=== PATIENT | male | born 1935 | race Caucasian/White ===

== ENCOUNTER 2017-06-25 04:41 | Outpatient (CLI) | payer MEDICARE, BC | END 2017-06-25 23:59 | disposition home or self-care (01) | LOC: DIABETIC 04:41 | PROVIDERS: ATTEND Family Medicine | DX: E11.9 Type 2 diabetes mellitus without complications (principal) | CPT/HCPCS: G0108 ==

== ENCOUNTER 2017-10-01 02:49 | Outpatient (CLI) | payer MEDICARE, BC | END 2017-10-01 23:59 | disposition home or self-care (01) | LOC: DIABETIC 02:49 | PROVIDERS: ATTEND Family Medicine | DX: E11.9 Type 2 diabetes mellitus without complications (principal) | CPT/HCPCS: G0108 ==

== ENCOUNTER 2017-10-30 05:51 | Day surgery (SDC) | payer MEDICARE, BC ==
[2017-10-29 09:21] LABS: BASOPHILS % (AUTO) 0.3 % (0-1); EOSINOPHILS # (AUTO) 0.6 X10'3 (0-0.9); EOSINOPHILS % (AUTO) 7.4 % (0-6); HEMATOCRIT 37.9 % (42.0-52.0); HEMOGLOBIN 12.8 g/dl (14.0-17.9); LYMPHOCYTES # (AUTO) 2.1 X10'3 (1.1-4.8); LYMPHOCYTES % (AUTO) 24.6 % (21-51); MEAN CORPUSCULAR HEMOGLOBIN 30.9 PG (27.0-31.0); MEAN CORPUSCULAR HGB CONC 33.8 % (33.0-36.5); MEAN CORPUSCULAR VOLUME 91.4 FL (78-98); MEAN PLATELET VOLUME 7.7 FL (7.4-10.4); MONOCYTES # (AUTO) 0.9 X10'3 (0-0.9); MONOCYTES % (AUTO) 9.9 % (2-12); NEUTROPHILS % (AUTO) 57.8 % (42-75); PLATELET COUNT 193 X10'3 (140-440); RED BLOOD COUNT 4.14 X10'6 (4.70-6.10); RED CELL DISTRIBUTION WIDTH 13.6 % (11.5-14.5); WHITE BLOOD COUNT 8.6 X10'3 (4.5-11.0)
[2017-10-29 09:30] LABS: ALBUMIN 3.7 G/DL (3.4-5.0); ANION GAP 7 (8-16); BLOOD UREA NITROGEN 21 MG/DL (7-18); BUN/CREATININE RATIO 19.1 (5.4-32.0); CALCIUM 9.5 MG/DL (8.5-10.1); CHLORIDE 106 MMOL/L (99-107); GLUCOSE 257 MG/DL (70-104); PARTIAL THROMBOPLASTIN TIME 25 SECONDS (22-32); POTASSIUM 4.2 MMOL/L (3.5-5.1); PROTHROMBIN TIME 10.7 SECONDS (9.0-12.0); SODIUM 142 MMOL/L (135-145); eGFR 64 ML/MIN
[~2017-10-30] VITALS: Ht 185.4 cm; Wt 81.4 kg
[2017-10-30] VITALS (18 sets, daily range): BP systolic 126–187; BP diastolic 54–98
[2017-10-30] MEDS ORDERED: acetylcysteine 200 MG/ml 4ml vial PO PRN (06:15)
[2017-10-30] MEDS ORDERED: diphenhydrAMINE 25mg capsule PO PRN (06:15)
[2017-10-30] MEDS ORDERED: LORazepam 0.5 MG tablet PO PRN (06:30)
[2017-10-30] MEDS ORDERED: RAMI10CA PO (07:17)
[2017-10-30] MEDS ORDERED: ASCO10007 PO (07:17)
[2017-10-30] MEDS ORDERED: FOLI0.4T2 PO (07:17)
[2017-10-30] MEDS ORDERED: NIAC250T2 PO (07:17)
[2017-10-30] MEDS ORDERED: OMEG1CAP13 PO (07:17)
[2017-10-30] MEDS ORDERED: NIT10P TD (07:17)
[2017-10-30] MEDS ORDERED: LANTUS SQ (07:17)
[2017-10-30] MEDS ORDERED: METF-436 PO (07:17)
[2017-10-30] MEDS ORDERED: CYA500T PO (07:17)
[2017-10-30] MEDS ORDERED: MULT-1172 PO (07:17)
[2017-10-30] MEDS ORDERED: SIMV20TA5 PO (07:17)
[2017-10-30] MEDS ORDERED: INSU100C4 SQ (07:17)
[2017-10-30] MEDS ORDERED: midazolam 2 mg/2 ml injection ONE (07:39)
[2017-10-30] MEDS ORDERED: heparin 1,000unit/ml 10ml vial 10 ML ONE (07:39)
[2017-10-30] MEDS ORDERED: nitroGLYCERIN-Tridil 50MG/D5W 250 ML IV ONE (07:39)
[2017-10-30] MEDS ORDERED: iohexol 350 MG/ML 50ML vial IV ONE (07:39)
[2017-10-30] MEDS ORDERED: LIDOcaine 1% 30ml preserv. free vial ONE (07:39)
[2017-10-30] MEDS ORDERED: fentaNYL/PF 50MCG/1 ML 2ML syringe ONE (07:39)
[2017-10-30] MEDS ORDERED: iohexol 350MG/ML 100ml bottle IV ONE ×3 (07:39→09:17)
[2017-10-30] MEDS: normal saline 1000ml 1,000 ML IV SCH ×3 (07:40→16:11)
[2017-10-30] MEDS ORDERED: ticagrelor 90mg tablet ONE (09:29)
[2017-10-30] MEDS ORDERED: cyclobenzaprine 10mg tablet PO PRN (10:30)
[2017-10-30] MEDS ORDERED: HYDROcodone/acetaminophen 10/325mg tab PO PRN ×2 (10:30)
[2017-10-30] MEDS ORDERED: OXAZEpam 15mg capsule PO PRN (10:30)
[2017-10-30] MEDS ORDERED: dextrose 50%-water 50ml dispensing syringe IV PRN ×2 (11:00)
[2017-10-30] MEDS ORDERED: glucagon, human recombinant 1mg kit SUBCUT PRN (11:00)
[2017-10-30] MEDS ORDERED: insulin Lispro (HumaLOG) vial - multi-dose SQ SCH (11:00)
[2017-10-30] MEDS ORDERED: dextrose ORAL solution 15 GM/59 ML bottle PO PRN ×2 (11:00)
[2017-10-30] MEDS ORDERED: MESSAGE TO PHARMACY PO ONE (11:00)
[2017-10-30] MEDS ORDERED: morphine 2 MG/ML inj. syringe IV PRN (11:15)
[2017-10-30] MEDS ORDERED: atropine 0.1mg/ml 10ml syringe IV PRN (11:55)
[2017-10-30] MEDS ORDERED: non-formulary drug (Insulin Aspart (Novolog) 100 UNIT) SQ SCH (13:00)
[2017-10-30 16:26] LABS: HEMOGLOBIN A1C 7.5 % (4.5-6.2)
[2017-10-30] MEDS ORDERED: atorvastatin 10mg tablet PO SCH (21:00)
[2017-10-30] MEDS ORDERED: insulin glargine (Lantus) pen - multi-dose SQ SCH ×2 (21:00)
[2017-10-30] MEDS: ticagrelor 90mg tablet PO SCH (21:21)
[2017-10-31 03:00] VITALS: BP 142/79
[2017-10-31 05:28] LABS: BASOPHILS % (AUTO) 0.3 % (0-1); EOSINOPHILS # (AUTO) 0.6 X10'3 (0-0.9); EOSINOPHILS % (AUTO) 5.1 % (0-6); HEMATOCRIT 35.7 % (42.0-52.0); HEMOGLOBIN 11.9 g/dl (14.0-17.9); LYMPHOCYTES # (AUTO) 2.4 X10'3 (1.1-4.8); LYMPHOCYTES % (AUTO) 21.5 % (21-51); MEAN CORPUSCULAR HEMOGLOBIN 31.1 PG (27.0-31.0); MEAN CORPUSCULAR HGB CONC 33.5 % (33.0-36.5); MEAN CORPUSCULAR VOLUME 92.8 FL (78-98); MEAN PLATELET VOLUME 8.4 FL (7.4-10.4); MONOCYTES # (AUTO) 1.1 X10'3 (0-0.9); MONOCYTES % (AUTO) 9.7 % (2-12); NEUTROPHILS # (AUTO) 7.2 X10'3 (1.8-7.7); NEUTROPHILS % (AUTO) 63.4 % (42-75); PLATELET COUNT 169 X10'3 (140-440); RED BLOOD COUNT 3.84 X10'6 (4.70-6.10); RED CELL DISTRIBUTION WIDTH 13.6 % (11.5-14.5); WHITE BLOOD COUNT 11.3 X10'3 (4.5-11.0)
[2017-10-31 06:06] LABS: ALBUMIN 3.3 G/DL (3.4-5.0); ANION GAP 7 (8-16); BLOOD UREA NITROGEN 20 MG/DL (7-18); BUN/CREATININE RATIO 16.8 (5.4-32.0); CALCIUM 8.6 MG/DL (8.5-10.1); CHLORIDE 106 MMOL/L (99-107); CHOL/HDL RATIO 2.9 (0.00-4.99); CHOLESTEROL 84 MG/DL (0-200); CREATININE 1.19 MG/DL (0.60-1.10); GLUCOSE 180 MG/DL (70-104); HDL CHOLESTEROL 29 MG/DL (35-60); LDL CHOLESTEROL 45 MG/DL (50-100); POTASSIUM 4.1 MMOL/L (3.5-5.1); SODIUM 142 MMOL/L (135-145); TOTAL CARBON DIOXIDE 28.8 MMOL/L (24-32); TRIGLYCERIDES 86 MG/DL (20-135); eGFR 59 ML/MIN
[2017-10-31 06:49] VITALS: BP 149/85
[2017-10-31] MEDS ORDERED: ASPI81TA52 PO (07:42)
[2017-10-31] MEDS ORDERED: METF-436 PO (07:42)
[2017-10-31] MEDS ORDERED: TICA90TA PO (07:42)
[2017-10-31] MEDS ORDERED: lisinopril 20mg tablet PO SCH (08:00)
[2017-10-31] MEDS ORDERED: folic acid 0.4mg tablet PO SCH (08:00)
[2017-10-31] MEDS ORDERED: nitroGLYCERIN 0.4mg/hour patch TD SCH (08:00)
[2017-10-31] MEDS ORDERED: beta-carotene(A) w/C & E + minerals tab PO SCH (08:00)
[2017-10-31] MEDS ORDERED: non-formulary drug (Docosahexanoic Acid/Epa (Fish Oil 1,000 Mg Softgel) 1 EACH) PO SCH (08:00)
[2017-10-31] MEDS ORDERED: ascorbic acid 500mg tablet PO SCH (08:00)
[2017-10-31] MEDS ORDERED: cyanocobalamin 500mcg tablet PO SCH (08:00)
[2017-10-31] MEDS: ticagrelor 90mg tablet PO SCH (08:29)
[2017-10-31] MEDS ORDERED: aspirin 81mg tab.chew PO SCH (08:30)
[2017-11-01] MEDS ORDERED: metFORMIN 500mg tablet PO SCH (08:00)
== END 2017-10-31 10:30 | disposition home or self-care (01) ==
LOC: SSTAY O 05:51 → PCU 3S 15:27 → SSTAY O 10-31 10:30
PROVIDERS: ATTEND Internal Medicine Cardiovascular Disease
DX: I25.118 Atherosclerotic heart disease of native coronary artery with other forms of angina pectoris (principal); E11.9 Type 2 diabetes mellitus without complications; I44.7 Left bundle-branch block, unspecified; I10 Essential (primary) hypertension; E78.5 Hyperlipidemia, unspecified; Z79.01 Long term (current) use of anticoagulants; Z86.79 Personal history of other diseases of the circulatory system; Z79.84 Long term (current) use of oral hypoglycemic drugs; Z79.4 Long term (current) use of insulin; Z95.5 Presence of coronary angioplasty implant and graft; Z79.899 Other long term (current) drug therapy
CPT/HCPCS: 36415; 80048; 80061; 82948; 83036; 85025; 85347; 85610; 85730; 93005; 93458; 99152; 99153; A6257; A6449; C1725; C1769; C1874; C9600; J1644; J1815; J2250; J2270; J3010; J3490; J7030; Q0163; Q9967; A4620; C9607

== ENCOUNTER 2017-12-02 20:45 | Inpatient (IN) | payer MEDICARE, BC ==
[~2017-12-02] VITALS: Ht 182.9 cm; Wt 74.4 kg
[~2017-12-02 20:45] MED LIST: ASCO10007 PO; ASPI81TA52 PO; CYA500T PO; FOLI0.4T2 PO; INSU100C4 SQ; LANTUS SQ; METF-436 PO; MULT-1172 PO; NIAC250T2 PO; OMEG1CAP13 PO; RAMI10CA PO; SIMV20TA5 PO; TICA90TA PO
[2017-12-02] MEDS ORDERED: aspirin 81mg tab.chew PO ONE (21:16)
[2017-12-02 21:22] LABS: BASOPHILS % (AUTO) 0.2 % (0-1); EOSINOPHILS # (AUTO) 0.5 X10'3 (0-0.9); EOSINOPHILS % (AUTO) 4.6 % (0-6); HEMATOCRIT 38.1 % (42.0-52.0); HEMOGLOBIN 12.8 g/dl (14.0-17.9); LYMPHOCYTES # (AUTO) 1.8 X10'3 (1.1-4.8); LYMPHOCYTES % (AUTO) 18.2 % (21-51); MEAN CORPUSCULAR HEMOGLOBIN 31.1 PG (27.0-31.0); MEAN CORPUSCULAR HGB CONC 33.7 % (33.0-36.5); MEAN CORPUSCULAR VOLUME 92.1 FL (78-98); MONOCYTES # (AUTO) 0.6 X10'3 (0-0.9); MONOCYTES % (AUTO) 6.4 % (2-12); NEUTROPHILS # (AUTO) 6.9 X10'3 (1.8-7.7); NEUTROPHILS % (AUTO) 70.6 % (42-75); PLATELET COUNT 177 X10'3 (140-440); RED BLOOD COUNT 4.14 X10'6 (4.70-6.10); WHITE BLOOD COUNT 9.8 X10'3 (4.5-11.0)
[2017-12-02 21:37] LABS: ALANINE AMINOTRANSFERASE 26 U/L (12-78); ALBUMIN 3.5 G/DL (3.4-5.0); ALBUMIN/GLOBULIN RATIO 0.9 (1.1-1.5); ALKALINE PHOSPHATASE 66 IU/L (46-116); ANION GAP 12 (8-16); ASPARTATE AMINO TRANSFERASE 22 U/L (10-37); BILIRUBIN,TOTAL 0.3 MG/DL (0.1-1.0); BLOOD UREA NITROGEN 23 MG/DL (7-18); BUN/CREATININE RATIO 15.5 (5.4-32.0); CALCIUM 9.4 MG/DL (8.5-10.1); CHLORIDE 105 MMOL/L (99-107); CREATININE 1.48 MG/DL (0.60-1.10); GLUCOSE 195 MG/DL (70-104); SODIUM 140 MMOL/L (135-145); TOTAL CARBON DIOXIDE 23.3 MMOL/L (24-32); TOTAL PROTEIN 7.2 G/DL (6.4-8.2); eGFR 46 ML/MIN
[2017-12-02] MEDS ORDERED: OMEP20TA23 PO (21:41)
[2017-12-02 21:47] LABS: D-DIMER 1.52 MG/L FEU (0-0.50); PARTIAL THROMBOPLASTIN TIME 24 SECONDS (22-32); PROTHROMBIN TIME 10.7 SECONDS (9.0-12.0)
[2017-12-02] MEDS ORDERED: heparin 10,000 units/1 ML INJ IV ONE ×2 (21:55→22:05)
[2017-12-02] MEDS ORDERED: heparin 10,000 units/1 ML INJ IV PRN (21:55)
[2017-12-03] MEDS ORDERED: ticagrelor 90mg tablet PO STA (00:33)
[2017-12-03] MEDS ORDERED: acetaminophen 325mg tablet PO PRN ×2 (00:35)
[2017-12-03] MEDS ORDERED: insulin glargine (Lantus) pen - multi-dose SQ ONE ×2 (00:35→01:13)
[2017-12-03] MEDS ORDERED: magnesium hydroxide 30ml (MOM) UD suspension PO PRN (00:35)
[2017-12-03] MEDS ORDERED: mag hydrox/Alum hydrox/simeth 30ml oral suspension PO PRN (00:35)
[2017-12-03] MEDS ORDERED: ondansetron/PF 4mg/2ml inj IV PRN (00:35)
[2017-12-03] MEDS ORDERED: glucagon, human recombinant 1mg kit SUBCUT PRN (00:40)
[2017-12-03] MEDS ORDERED: dextrose ORAL solution 15 GM/59 ML bottle PO PRN ×2 (00:40)
[2017-12-03] MEDS ORDERED: dextrose 50%-water 50ml dispensing syringe IV PRN ×2 (00:40)
[2017-12-03] MEDS ORDERED: MESSAGE TO PHARMACY PO ONE (00:40)
[2017-12-03 04:00] VITALS: BP 144/87
[2017-12-03 05:30] VITALS: BP 140/90
[2017-12-03 06:15] LABS: BASOPHILS % (AUTO) 0.3 % (0-1); EOSINOPHILS # (AUTO) 0.8 X10'3 (0-0.9); EOSINOPHILS % (AUTO) 7.7 % (0-6); HEMATOCRIT 35.4 % (42.0-52.0); HEMOGLOBIN 12.2 g/dl (14.0-17.9); LYMPHOCYTES # (AUTO) 2.3 X10'3 (1.1-4.8); LYMPHOCYTES % (AUTO) 21.5 % (21-51); MEAN CORPUSCULAR HEMOGLOBIN 31.2 PG (27.0-31.0); MEAN CORPUSCULAR HGB CONC 34.3 % (33.0-36.5); MEAN CORPUSCULAR VOLUME 90.9 FL (78-98); MEAN PLATELET VOLUME 8.4 FL (7.4-10.4); MONOCYTES # (AUTO) 0.9 X10'3 (0-0.9); MONOCYTES % (AUTO) 8.8 % (2-12); NEUTROPHILS # (AUTO) 6.6 X10'3 (1.8-7.7); NEUTROPHILS % (AUTO) 61.7 % (42-75); PLATELET COUNT 167 X10'3 (140-440); RED CELL DISTRIBUTION WIDTH 13.5 % (11.5-14.5); WHITE BLOOD COUNT 10.6 X10'3 (4.5-11.0)
[2017-12-03] MEDS: pantoprazole 40mg Tablet.DR PO SCH (07:36)
[2017-12-03] MEDS: atorvastatin 10mg tablet PO SCH (07:36)
[2017-12-03] MEDS: lisinopril 20mg tablet PO SCH (07:36)
[2017-12-03] MEDS: metoprolol tartrate 12.5mg (1/2 tablet) PO SCH ×2 (07:47→20:00)
[2017-12-03] MEDS: aspirin 81mg tablet.DR PO SCH (08:00)
[2017-12-03] MEDS: ticagrelor 90mg tablet PO SCH ×2 (08:00→20:00)
[2017-12-03 09:29] LABS: ALBUMIN 3.1 G/DL (3.4-5.0); ANION GAP 8 (8-16); BLOOD UREA NITROGEN 23 MG/DL (7-18); BUN/CREATININE RATIO 19.3 (5.4-32.0); CHLORIDE 106 MMOL/L (99-107); CREATININE 1.19 MG/DL (0.60-1.10); GLUCOSE 174 MG/DL (70-104); POTASSIUM 3.9 MMOL/L (3.5-5.1); SODIUM 141 MMOL/L (135-145); TOTAL CARBON DIOXIDE 26.6 MMOL/L (24-32); eGFR 59 ML/MIN
[2017-12-03 11:00] VITALS: BP 126/84
[2017-12-03 15:00] VITALS: BP 141/82
[2017-12-03] MEDS: Potassium Cl inj 20 MEQ in normal saline 1000ml 990 ML IV SCH (17:41)
[2017-12-03] MEDS: nitroGLYCERIN 0.2mg/hour patch TD SCH (17:41)
[2017-12-03 18:00] VITALS: BP 141/74
[2017-12-03] MEDS ORDERED: iohexol 350MG/ML 100ml bottle IV ONE (18:33)
[2017-12-03] MEDS: insulin Lispro (HumaLOG) vial - multi-dose SQ SCH (19:26)
[2017-12-03] MEDS: MESSAGE TO NURSING PO SCH (20:00)
[2017-12-03 22:00] VITALS: BP 129/66
[2017-12-03] MEDS: insulin glargine (Lantus) pen - multi-dose SQ SCH (22:03)
[2017-12-04 02:00] VITALS: BP 125/81
[2017-12-04 02:21] LABS: BASOPHILS % (AUTO) 0.5 % (0-1); EOSINOPHILS % (AUTO) 12.8 % (0-6); HEMATOCRIT 34.4 % (42.0-52.0); HEMOGLOBIN 11.7 g/dl (14.0-17.9); LYMPHOCYTES % (AUTO) 25.3 % (21-51); MEAN CORPUSCULAR HEMOGLOBIN 31.3 PG (27.0-31.0); MEAN CORPUSCULAR HGB CONC 34.1 % (33.0-36.5); MEAN CORPUSCULAR VOLUME 91.7 FL (78-98); MEAN PLATELET VOLUME 8.1 FL (7.4-10.4); MONOCYTES # (AUTO) 0.8 X10'3 (0-0.9); NEUTROPHILS % (AUTO) 51.4 % (42-75); PLATELET COUNT 153 X10'3 (140-440); RED BLOOD COUNT 3.75 X10'6 (4.70-6.10); RED CELL DISTRIBUTION WIDTH 13.6 % (11.5-14.5); WHITE BLOOD COUNT 7.8 X10'3 (4.5-11.0)
[2017-12-04 05:30] VITALS: BP 126/78
[2017-12-04 06:14] LABS: ALBUMIN 3.2 G/DL (3.4-5.0); ANION GAP 7 (8-16); BLOOD UREA NITROGEN 21 MG/DL (7-18); BUN/CREATININE RATIO 17.1 (5.4-32.0); CALCIUM 8.7 MG/DL (8.5-10.1); CHLORIDE 106 MMOL/L (99-107); CHOL/HDL RATIO 2.6 (0.00-4.99); CHOLESTEROL 79 MG/DL (0-200); CREATININE 1.23 MG/DL (0.60-1.10); GLUCOSE 102 MG/DL (70-104); HDL CHOLESTEROL 30 MG/DL (35-60); LDL CHOLESTEROL 42 MG/DL (50-100); POTASSIUM 4.1 MMOL/L (3.5-5.1); SODIUM 141 MMOL/L (135-145); TOTAL CARBON DIOXIDE 27.8 MMOL/L (24-32); TRIGLYCERIDES 32 MG/DL (20-135); eGFR 57 ML/MIN
[2017-12-04 06:16] LABS: TROPONIN I 5.89 NG/ML (0.0-0.05)
[2017-12-04] MEDS: ticagrelor 90mg tablet PO SCH ×2 (06:53→19:34)
[2017-12-04] MEDS: atorvastatin 10mg tablet PO SCH (07:00)
[2017-12-04] MEDS: aspirin 81mg tablet.DR PO SCH (07:00)
[2017-12-04] MEDS: pantoprazole 40mg Tablet.DR PO SCH (07:00)
[2017-12-04] MEDS: nitroGLYCERIN 0.2mg/hour patch TD SCH (07:01)
[2017-12-04] MEDS: metoprolol tartrate 12.5mg (1/2 tablet) PO SCH ×2 (07:03→20:08)
[2017-12-04] MEDS: lisinopril 20mg tablet PO SCH (07:03)
[2017-12-04] MEDS: insulin Lispro (HumaLOG) vial - multi-dose SQ SCH ×2 (08:43→13:08)
[2017-12-04] MEDS: Potassium Cl inj 20 MEQ in normal saline 1000ml 990 ML IV SCH ×2 (08:48→21:56)
[2017-12-04 11:00] VITALS: BP 136/68
[2017-12-04] MEDS: normal saline 1000ml 1,000 ML IV SCH (14:07)
[2017-12-04 15:00] VITALS: BP 103/62
[2017-12-04 18:00] VITALS: BP 131/60
[2017-12-04] MEDS: MESSAGE TO NURSING PO SCH (20:00)
[2017-12-04] MEDS: insulin glargine (Lantus) pen - multi-dose SQ SCH (20:11)
[2017-12-04 22:00] VITALS: BP 147/69
[2017-12-05] VITALS (16 sets, daily range): BP systolic 122–145; BP diastolic 52–82
[2017-12-05 05:56] LABS: BASOPHILS % (AUTO) 0.2 % (0-1); EOSINOPHILS # (AUTO) 1.3 X10'3 (0-0.9); EOSINOPHILS % (AUTO) 14.6 % (0-6); HEMATOCRIT 35.3 % (42.0-52.0); HEMOGLOBIN 12.1 g/dl (14.0-17.9); LYMPHOCYTES # (AUTO) 2.1 X10'3 (1.1-4.8); LYMPHOCYTES % (AUTO) 23.4 % (21-51); MEAN CORPUSCULAR HEMOGLOBIN 31.1 PG (27.0-31.0); MEAN CORPUSCULAR HGB CONC 34.3 % (33.0-36.5); MEAN CORPUSCULAR VOLUME 90.5 FL (78-98); MEAN PLATELET VOLUME 8.3 FL (7.4-10.4); MONOCYTES # (AUTO) 0.9 X10'3 (0-0.9); MONOCYTES % (AUTO) 9.8 % (2-12); NEUTROPHILS # (AUTO) 4.6 X10'3 (1.8-7.7); PLATELET COUNT 151 X10'3 (140-440); WHITE BLOOD COUNT 8.8 X10'3 (4.5-11.0)
[2017-12-05 06:30] LABS: ALBUMIN 3.2 G/DL (3.4-5.0); ANION GAP 8 (8-16); BLOOD UREA NITROGEN 20 MG/DL (7-18); BUN/CREATININE RATIO 16.8 (5.4-32.0); CALCIUM 8.9 MG/DL (8.5-10.1); CHLORIDE 107 MMOL/L (99-107); CREATININE 1.19 MG/DL (0.60-1.10); GLUCOSE 121 MG/DL (70-104); POTASSIUM 4.2 MMOL/L (3.5-5.1); SODIUM 141 MMOL/L (135-145); TOTAL CARBON DIOXIDE 25.6 MMOL/L (24-32); eGFR 59 ML/MIN
[2017-12-05] MEDS: lisinopril 20mg tablet PO SCH (07:47)
[2017-12-05] MEDS: metoprolol tartrate 12.5mg (1/2 tablet) PO SCH ×2 (07:47→20:00)
[2017-12-05] MEDS: atorvastatin 10mg tablet PO SCH (07:48)
[2017-12-05] MEDS: aspirin 81mg tablet.DR PO SCH (07:48)
[2017-12-05] MEDS: pantoprazole 40mg Tablet.DR PO SCH (07:48)
[2017-12-05] MEDS: nitroGLYCERIN 0.2mg/hour patch TD SCH (07:48)
[2017-12-05] MEDS: ticagrelor 90mg tablet PO SCH ×2 (07:50→19:20)
[2017-12-05] MEDS ORDERED: iohexol 350 MG/ML 50ML vial IV ONE (10:09)
[2017-12-05] MEDS ORDERED: iohexol 350MG/ML 100ml bottle IV ONE (10:09)
[2017-12-05] MEDS ORDERED: midazolam 2 mg/2 ml injection ONE (10:09)
[2017-12-05] MEDS ORDERED: fentaNYL/PF 50MCG/1 ML 2ML syringe ONE (10:09)
[2017-12-05] MEDS ORDERED: LIDOcaine 1% 30ml preserv. free vial ONE (10:13)
[2017-12-05] MEDS: normal saline 1000ml 1,000 ML IV SCH ×2 (10:20→23:28)
[2017-12-05] MEDS ORDERED: HYDROcodone/acetaminophen 10/325mg tab PO PRN (11:30)
[2017-12-05] MEDS ORDERED: OXAZEpam 15mg capsule PO PRN (11:30)
[2017-12-05] MEDS ORDERED: HYDROcodone/acetaminophen 5mg/325mg tablet PO PRN (11:30)
[2017-12-05] MEDS ORDERED: proCHLORperazine 10 MG/2 ml inj IV PRN (11:30)
[2017-12-05] MEDS ORDERED: nitroGLYCERIN 0.4mg SUBLingual tab SL PRN (11:30)
[2017-12-05] MEDS: Potassium Cl inj 20 MEQ in normal saline 1000ml 990 ML IV SCH (12:14)
[2017-12-05] MEDS: insulin Lispro (HumaLOG) vial - multi-dose SQ SCH (19:11)
[2017-12-05] MEDS: insulin glargine (Lantus) pen - multi-dose SQ SCH (21:20)
[2017-12-06] VITALS (13 sets, daily range): BP systolic 114–156; BP diastolic 63–81
[2017-12-06] MEDS: Potassium Cl inj 20 MEQ in normal saline 1000ml 990 ML IV SCH (02:42)
[2017-12-06 06:10] LABS: BASOPHILS % (AUTO) 0.3 % (0-1); EOSINOPHILS # (AUTO) 0.9 X10'3 (0-0.9); EOSINOPHILS % (AUTO) 8.7 % (0-6); HEMOGLOBIN 11.6 g/dl (14.0-17.9); LYMPHOCYTES # (AUTO) 1.6 X10'3 (1.1-4.8); MEAN CORPUSCULAR HEMOGLOBIN 31.1 PG (27.0-31.0); MEAN CORPUSCULAR HGB CONC 34.2 % (33.0-36.5); MEAN CORPUSCULAR VOLUME 90.9 FL (78-98); MEAN PLATELET VOLUME 8.1 FL (7.4-10.4); MONOCYTES # (AUTO) 0.9 X10'3 (0-0.9); MONOCYTES % (AUTO) 9.1 % (2-12); NEUTROPHILS # (AUTO) 6.5 X10'3 (1.8-7.7); NEUTROPHILS % (AUTO) 65.9 % (42-75); PLATELET COUNT 162 X10'3 (140-440); RED BLOOD COUNT 3.73 X10'6 (4.70-6.10); RED CELL DISTRIBUTION WIDTH 14.1 % (11.5-14.5); WHITE BLOOD COUNT 9.8 X10'3 (4.5-11.0)
[2017-12-06 06:21] LABS: ALBUMIN 3.2 G/DL (3.4-5.0); ANION GAP 6 (8-16); BLOOD UREA NITROGEN 20 MG/DL (7-18); BUN/CREATININE RATIO 17.1 (5.4-32.0); CALCIUM 8.8 MG/DL (8.5-10.1); CHLORIDE 107 MMOL/L (99-107); CREATININE 1.17 MG/DL (0.60-1.10); GLUCOSE 109 MG/DL (70-104); SODIUM 140 MMOL/L (135-145); TOTAL CARBON DIOXIDE 27.3 MMOL/L (24-32); eGFR 60 ML/MIN
[2017-12-06] MEDS: aspirin 81mg tablet.DR PO SCH (08:15)
[2017-12-06] MEDS: ticagrelor 90mg tablet PO SCH ×2 (08:15→19:35)
[2017-12-06] MEDS: metoprolol tartrate 12.5mg (1/2 tablet) PO SCH ×2 (08:15→19:38)
[2017-12-06] MEDS: nitroGLYCERIN 0.2mg/hour patch TD SCH (08:15)
[2017-12-06] MEDS: lisinopril 20mg tablet PO SCH (08:15)
[2017-12-06] MEDS: atorvastatin 10mg tablet PO SCH (08:15)
[2017-12-06] MEDS: pantoprazole 40mg Tablet.DR PO SCH (08:15)
[2017-12-06] MEDS: insulin Lispro (HumaLOG) vial - multi-dose SQ SCH ×2 (08:22→19:34)
[2017-12-06] MEDS: normal saline 1000ml 1,000 ML IV SCH (11:32)
[2017-12-06] MEDS: insulin glargine (Lantus) pen - multi-dose SQ SCH (21:51)
[2017-12-07] MEDS: normal saline 1000ml 1,000 ML IV SCH (01:15)
[2017-12-07 03:00] VITALS: BP 154/77
[2017-12-07 06:21] LABS: ALBUMIN 3.2 G/DL (3.4-5.0); ANION GAP 8 (8-16); BLOOD UREA NITROGEN 19 MG/DL (7-18); BUN/CREATININE RATIO 17.8 (5.4-32.0); CALCIUM 8.8 MG/DL (8.5-10.1); CHLORIDE 108 MMOL/L (99-107); CREATININE 1.07 MG/DL (0.60-1.10); GLUCOSE 106 MG/DL (70-104); POTASSIUM 3.7 MMOL/L (3.5-5.1); SODIUM 142 MMOL/L (135-145); TOTAL CARBON DIOXIDE 25.7 MMOL/L (24-32); eGFR 66 ML/MIN
[2017-12-07 06:30] LABS: BASOPHILS % (AUTO) 0.4 % (0-1); EOSINOPHILS % (AUTO) 12.2 % (0-6); HEMATOCRIT 34.7 % (42.0-52.0); HEMOGLOBIN 11.9 g/dl (14.0-17.9); LYMPHOCYTES # (AUTO) 1.6 X10'3 (1.1-4.8); LYMPHOCYTES % (AUTO) 20.4 % (21-51); MEAN CORPUSCULAR HEMOGLOBIN 31.3 PG (27.0-31.0); MEAN CORPUSCULAR HGB CONC 34.4 % (33.0-36.5); MEAN CORPUSCULAR VOLUME 91.2 FL (78-98); MEAN PLATELET VOLUME 8.3 FL (7.4-10.4); MONOCYTES # (AUTO) 0.8 X10'3 (0-0.9); MONOCYTES % (AUTO) 9.4 % (2-12); NEUTROPHILS # (AUTO) 4.6 X10'3 (1.8-7.7); NEUTROPHILS % (AUTO) 57.6 % (42-75); PLATELET COUNT 171 X10'3 (140-440); RED CELL DISTRIBUTION WIDTH 13.9 % (11.5-14.5)
[2017-12-07] MEDS: atorvastatin 10mg tablet PO SCH (07:32)
[2017-12-07] MEDS: metoprolol tartrate 12.5mg (1/2 tablet) PO SCH (07:32)
[2017-12-07] MEDS: lisinopril 20mg tablet PO SCH (07:32)
[2017-12-07] MEDS: nitroGLYCERIN 0.2mg/hour patch TD SCH (07:32)
[2017-12-07] MEDS: ticagrelor 90mg tablet PO SCH (07:32)
[2017-12-07] MEDS: pantoprazole 40mg Tablet.DR PO SCH (07:32)
[2017-12-07] MEDS: aspirin 81mg tablet.DR PO SCH (07:32)
[2017-12-07] MEDS: insulin Lispro (HumaLOG) vial - multi-dose SQ SCH (07:38)
[2017-12-07] MEDS ORDERED: CARV3.12 PO (10:03)
== END 2017-12-07 11:06 | disposition home or self-care (01) | DRG 281 ==
LOC: ER 20:46 → ED HOLD 12-03 00:34 → EDBEDREQ 12-03 01:32 → PCU 3S 12-03 01:59
PROVIDERS: ADMIT Internal Medicine; ATTEND Internal Medicine Cardiovascular Disease
PROC: B32T1ZZ Computerized Tomography (CT Scan) of Left Pulmonary Artery using Low Osmolar Contrast (ICD-10-PCS; 2017-12-03)
PROC: B3201ZZ Computerized Tomography (CT Scan) of Thoracic Aorta using Low Osmolar Contrast (ICD-10-PCS; 2017-12-03)
PROC: B32S1ZZ Computerized Tomography (CT Scan) of Right Pulmonary Artery using Low Osmolar Contrast (ICD-10-PCS; 2017-12-03)
PROC: 4A023N7 Measurement of Cardiac Sampling and Pressure, Left Heart, Percutaneous Approach (ICD-10-PCS; principal; 2017-12-05)
PROC: B2111ZZ Fluoroscopy of Multiple Coronary Arteries using Low Osmolar Contrast (ICD-10-PCS; 2017-12-05)
PROC: B2151ZZ Fluoroscopy of Left Heart using Low Osmolar Contrast (ICD-10-PCS; 2017-12-05)
DX: T82.855A Stenosis of coronary artery stent, initial encounter (principal); I21.4 Non-ST elevation (NSTEMI) myocardial infarction; N17.9 Acute kidney failure, unspecified; I47.2 Ventricular tachycardia; R79.1 Abnormal coagulation profile; I25.119 Atherosclerotic heart disease of native coronary artery with unspecified angina pectoris; I10 Essential (primary) hypertension; E11.9 Type 2 diabetes mellitus without complications; D64.9 Anemia, unspecified; E78.5 Hyperlipidemia, unspecified; I73.00 Raynaud's syndrome without gangrene; Y83.9 Surgical procedure, unspecified as the cause of abnormal reaction of the patient, or of later complication, without mention of misadventure at the time of the procedure; E86.0 Dehydration; I25.2 Old myocardial infarction; Z95.5 Presence of coronary angioplasty implant and graft; Z79.82 Long term (current) use of aspirin; Z79.899 Other long term (current) drug therapy; Z79.4 Long term (current) use of insulin; Y92.89 Other specified places as the place of occurrence of the external cause
CPT/HCPCS: 36415; 71045; 71275; 78582; 80048; 80053; 80061; 82948; 84484; 85025; 85347; 85379; 85610; 85730; 87070; 93005; 93306; 93458; 96374; 97116; 97161; 99152; 99153; 99285; A4620; A6257; A9539; A9540; C1760; C1769; J1644; J1815; J2250; J3010; J3480; J3490; J7030; Q9967

== ENCOUNTER 2018-01-10 03:16 | Outpatient (CLI) | payer MEDICARE, BC ==
[~2018-01-10 03:16] MED LIST changes: +CARV3.12 PO; +OMEP20TA23 PO
== END 2018-01-10 23:59 | disposition home or self-care (01) ==
LOC: DIABETIC 03:16
PROVIDERS: ATTEND Family Medicine
DX: E11.9 Type 2 diabetes mellitus without complications (principal); I10 Essential (primary) hypertension; Z79.82 Long term (current) use of aspirin; Z79.899 Other long term (current) drug therapy
CPT/HCPCS: G0108

== ENCOUNTER 2018-04-11 01:30 | Outpatient (CLI) | payer MEDICARE, BC ==
[~2018-04-11 01:30] MED LIST changes: -RAMI10CA PO; +RAMI10CA69 PO
== END 2018-04-11 23:59 | disposition home or self-care (01) ==
LOC: DIABETIC 01:30
PROVIDERS: ATTEND Family Medicine
DX: E11.9 Type 2 diabetes mellitus without complications (principal); I10 Essential (primary) hypertension; I25.2 Old myocardial infarction; Z79.82 Long term (current) use of aspirin; Z79.84 Long term (current) use of oral hypoglycemic drugs; Z79.4 Long term (current) use of insulin
CPT/HCPCS: G0108

== ENCOUNTER 2018-07-11 00:39 | Outpatient (CLI) | payer MEDICARE, BC | END 2018-07-11 23:59 | disposition home or self-care (01) | LOC: DIABETIC 00:39 | PROVIDERS: ATTEND Family Medicine | DX: E11.9 Type 2 diabetes mellitus without complications (principal); I10 Essential (primary) hypertension; Z79.4 Long term (current) use of insulin; Z79.82 Long term (current) use of aspirin | CPT/HCPCS: G0108 ==

== ENCOUNTER 2018-10-08 03:34 | Outpatient (CLI) | payer MEDICARE, BC | END 2018-10-08 23:59 | disposition home or self-care (01) | LOC: DIABETIC 03:34 | PROVIDERS: ATTEND Family Medicine | DX: E11.9 Type 2 diabetes mellitus without complications (principal); I10 Essential (primary) hypertension; Z79.4 Long term (current) use of insulin; Z79.84 Long term (current) use of oral hypoglycemic drugs; Z79.899 Other long term (current) drug therapy | CPT/HCPCS: G0108 ==

== ENCOUNTER 2019-01-09 03:29 | Outpatient (CLI) | payer MEDICARE, BC ==
[~2019-01-09 03:29] MED LIST changes: -CYA500T PO; +CYAN500T63 PO
== END 2019-01-09 23:59 | disposition home or self-care (01) ==
LOC: DIABETIC 03:29
PROVIDERS: ATTEND Family Medicine
DX: E11.9 Type 2 diabetes mellitus without complications (principal); I10 Essential (primary) hypertension; Z79.4 Long term (current) use of insulin; Z79.84 Long term (current) use of oral hypoglycemic drugs; Z79.82 Long term (current) use of aspirin; Z79.899 Other long term (current) drug therapy
CPT/HCPCS: G0108